=== PATIENT | female | born 1990 | race Two or more races ===

== ENCOUNTER 2021-01-11 09:19 | Day surgery (SDC) | payer OTHER ==
[2021-01-11] MEDS ORDERED: SILVADENE20 GM TOP (16:49)
[2021-01-11] MEDS ORDERED: ULTRACET PO (16:50)
== END 2021-01-11 21:50 | disposition home or self-care (01) ==
LOC: CIR.AMB 09:19
PROVIDERS: ATTEND Obstetrics & Gynecology
DX: A63.0 Anogenital (venereal) warts (principal); A07.8 Other specified protozoal intestinal diseases; Z20.822 Contact with and (suspected) exposure to COVID-19

== ENCOUNTER 2023-12-12 13:43 | Inpatient (IN) | payer OTHER ==
[~2023-12-12] VITALS: Ht 231.1 cm; Wt 99.8 kg
[~2023-12-12 13:43] MED LIST: SILVADENE20 GM TOP; ULTRACET PO
[2023-12-12 16:41] LABS: MEAN CELL VOLUME 93.1 fL (80.00-100.00); MEAN CORPUSCULAR HGB CONC 34.3 g/dl (32.0-36.0); PLATELET COUNT 336 K/uL (150-450); RED BLOOD COUNT 2.27 M/uL (4.00-6.00); RED CELL DISTRIBUTION WIDTH 13.8 % (11.5-14.5)
[2023-12-12 16:45] LABS: HEMATOCRIT 21.2 % (36.0-45.00); MEAN CORPUSCULAR HEMOGLOBIN 32.1 pg (27.00-32.0)
[2023-12-12] MEDS ORDERED: ACETAMINOPHEN 500 MG GEL..CAP PO ONE ×2 (16:45→17:53)
[2023-12-12 16:46] LABS: HEMOGLOBIN 7.3 g/dL (12.0-15.00)
[2023-12-12 16:54] LABS: INR 1.03; PARTIAL THROMBOPLASTIN TIME 25.9 SECONDS (22.0-34.0); PROTHROMBIN TIME 10.8 SECONDS (9.0-11.5)
[2023-12-12 17:03] LABS: CALCIUM 9.2 mg/dL (8.5-10.1); CREATININE SERUM 0.56 mg/dL (0.55-1.02); GFR 126.26; POTASSIUM 3.94 mEq/L (3.5-5.1)
[2023-12-12 17:10] LABS: PH,URINE 5.5 (5.0-8.0); URINE APPEARANCE Clear; URINE BILIRRUBIN Negative (NEGATIVE); URINE BLOOD Large; URINE COLOR Yellow; URINE GLUCOSE Negative (NEGATIVE); URINE KETONE Negative (NEGATIVE); URINE LEUKOCYTE Trace; URINE NITRATE Negative; URINE PROTEIN Negative (NEGATIVE); URINE UROBILINOGEN 0.2 E.U./dl
[2023-12-12 17:14] LABS: URINE EPITHELIAL CELLS 3.2 uL (0.0-38.8); URINE RBC 20.7 uL (0.0-20.8); URINE WBC 33.4 uL (0.0-23.2)
[2023-12-12 17:31] LABS: URINE CAST 0.15 uL (0.0-1.40)
[2023-12-12] MEDS ORDERED: CEFTRIAXONE SODIUM 2,000 MG VIAL IV ONE (17:45)
[2023-12-12] MEDS ORDERED: 0.9 % SODIUM CHLORIDE 500 ML IV ONE (17:45)
[2023-12-12] MEDS ORDERED: CEFTRIAXONE SODIUM 2,000 MG VIAL ONE (17:53)
[2023-12-12] MEDS ORDERED: CEFTRIAXONE SODIUM 1,000 MG VIAL IV SCH (18:30)
[2023-12-12] MEDS ORDERED: CEFTRIAXONE SODIUM 1,000 MG VIAL IV STA (18:30)
[2023-12-12 18:31] LABS: HEMATOCRIT 26.3 % (36.0-45.00); MEAN CELL VOLUME 93.9 fL (80.00-100.00); MEAN CORPUSCULAR HGB CONC 34.1 g/dl (32.0-36.0); PLATELET COUNT 354 K/uL (150-450); RED CELL DISTRIBUTION WIDTH 13.3 % (11.5-14.5)
[2023-12-12 18:35] LABS: MEAN CORPUSCULAR HEMOGLOBIN 32.1 pg (27.00-32.0)
[2023-12-13] MEDS ORDERED: NAPROXEN 500 MG TABLET PO SCH (05:28)
[2023-12-13 16:46] LABS: HEMATOCRIT 30.2 % (36.0-45.00); HEMOGLOBIN 10.6 g/dL (12.0-15.00); MEAN CELL VOLUME 91.1 fL (80.00-100.00); MEAN CORPUSCULAR HEMOGLOBIN 31.8 pg (27.00-32.0); MEAN CORPUSCULAR HGB CONC 34.9 g/dl (32.0-36.0); PLATELET COUNT 356 K/uL (150-450); RED BLOOD COUNT 3.31 M/uL (4.00-6.00); RED CELL DISTRIBUTION WIDTH 14.1 % (11.5-14.5)
[2023-12-14] MEDS ORDERED: NAPR500T14 PO (11:57)
[2023-12-14] MEDS ORDERED: MAXFE CAPLET1 EAC1 PO (11:57)
== END 2023-12-14 12:47 | disposition home or self-care (01) | DRG 812 ==
LOC: ER 13:43 → SEC-K 18:51 → OB/GYN 18:51
PROVIDERS: Nurse Practitioner Family; ADMIT Obstetrics & Gynecology; ATTEND Obstetrics & Gynecology
PROC: BU4CZZZ Ultrasonography of Uterus and Ovaries (ICD-10-PCS; principal; 2023-12-12)
PROC: 30233N1 Transfusion of Nonautologous Red Blood Cells into Peripheral Vein, Percutaneous Approach (ICD-10-PCS; 2023-12-13)
DX: D50.0 Iron deficiency anemia secondary to blood loss (chronic) (principal); D25.1 Intramural leiomyoma of uterus; O03.6 Delayed or excessive hemorrhage following complete or unspecified spontaneous abortion; Z20.822 Contact with and (suspected) exposure to COVID-19

== ENCOUNTER 2024-11-08 08:30 | Inpatient (IN) | payer OTHER ==
[~2024-11-08] VITALS: Ht 152.4 cm; Wt 110.7 kg
[~2024-11-08 08:30] MED LIST changes: +MAXFE CAPLET1 EAC1 PO; +NAPR500T14 PO
[2024-11-08 10:14] VITALS: BP 122/76
[2024-11-08 11:05] LABS: URINE APPEARANCE Clear; URINE BILIRRUBIN Negative (NEGATIVE); URINE BLOOD NHT; URINE COLOR Yellow; URINE GLUCOSE Negative (NEGATIVE); URINE KETONE Negative (NEGATIVE); URINE LEUKOCYTE Negative; URINE NITRATE Negative; URINE PROTEIN Negative (NEGATIVE); URINE UROBILINOGEN 0.2 E.U./dl
[2024-11-08 11:09] LABS: URINE BACTERIA 5363.7 uL (0.0-1933); URINE EPITHELIAL CELLS 55.8 uL (0.0-38.8); URINE RBC 25.0 uL (0.0-20.8); URINE WBC 41.5 uL (0.0-23.2)
[2024-11-08 11:12] LABS: URINE CAST 0.43 uL (0.0-1.40)
[2024-11-08 11:19] LABS: BASO % 0.5 % (0.1-1.2); EOS # 0.12 (0.04-0.54); EOS % 2.1 % (0.7-7.0); LYMPH # 1.72 (1.18-3.74); LYMPH % 30.2 % (19.3-53.1); MEAN PLATELET VOLUME 9.00 fl (9.4-12.4); MONO # 0.40 (0.24-0.82); MONO % 7.0 % (4.7-12.5); NEUT # 3.42 (1.56-6.13); NEUT % 60.0 % (34.0-71.1); RED CELL DISTRIBUTION WIDTH 15.1 % (11.6-14.4)
[2024-11-08 12:27] LABS: ALT/SGPT 17 U/L (12-78); AST/SGOT 11 U/L (15-37); BILIRUBIN TOTAL 0.37 mg/dL (0.3-1.2); BUN CREA RATIO 18 (7.0-25.0); CREATININE SERUM 0.68 mg/dL (0.55-1.02); GFR 100.27; GLOBULINA 4.2 G/DL (2.4-3.5); GLUCOSE FASTING 78 mg/dL (65-100); OSMOLALITY SERUM 278 MOSM/KG (275-295)
[2024-11-08 12:28] LABS: HCG QUANTITATIVE < 1 mUI/mL (1-3)
[2024-11-08 12:55] LABS: RH POSITIVE
[2024-11-08 12:58] LABS: INR 1.0
[2024-11-22] MEDS ORDERED: VASOPRESSIN 20 UNITS/ML VIAL IJ ONE (08:15)
[2024-11-22] MEDS ORDERED: CEFAZOLIN SODIUM 1,000 MG VIAL IV ONE (09:00)
[2024-11-22] MEDS ORDERED: TRANEXAMIC ACID 100MG/1ML (1000MG) AMPUL IV ONE (09:00)
[2024-11-22] MEDS ORDERED: SUGAMMADEX SODIUM 200 MG/2 ML VIAL IV ONE (09:56)
[2024-11-22] MEDS ORDERED: KETOROLAC TROMETHAMINE 30 MG VIAL IV SCH (12:12)
[2024-11-22] MEDS ORDERED: ACETAMINOPHEN 500 MG GEL..CAP PO SCH (12:12)
[2024-11-22] MEDS ORDERED: RINGERS SOLUTION,LACTATED 1,000 ML IV SCH (12:15)
[2024-11-22] MEDS ORDERED: ONDANSETRON HCL 2 MG/ML VIAL ONE (12:32)
[2024-11-22] MEDS ORDERED: MORPHINE SULFATE 4 MG/ML VIAL IV ONE ×2 (12:35→13:40)
[2024-11-22] MEDS ORDERED: ONDANSETRON HCL 2 MG/ML VIAL IV ONE (12:40)
[2024-11-22] MEDS ORDERED: GABAPENTIN 300 MG CAPSULE PO SCH (13:00)
[2024-11-22] MEDS ORDERED: KETOROLAC TROMETHAMINE 30 MG VIAL ONE (13:05)
[2024-11-22 14:51] VITALS: BP 100/60
[2024-11-22 16:03] VITALS: BP 100/65
[2024-11-22] MEDS ORDERED: ONDANSETRON HCL 2 MG/ML VIAL IV SCH (18:00)
[2024-11-22 20:14] VITALS: BP 94/51
[2024-11-23 01:17] VITALS: BP 117/69
[2024-11-23 07:06] LABS: BASO % 0.3 % (0.1-1.2); EOS # 0.08 (0.04-0.54); EOS % 0.9 % (0.7-7.0); LYMPH # 2.21 (1.18-3.74); LYMPH % 24.4 % (19.3-53.1); MEAN PLATELET VOLUME 9.50 fl (9.4-12.4); MONO # 0.65 (0.24-0.82); MONO % 7.2 % (4.7-12.5); NEUT # 6.06 (1.56-6.13); NEUT % 67.0 % (34.0-71.1); RED CELL DISTRIBUTION WIDTH 15.9 % (11.6-14.4)
[2024-11-23 09:34] VITALS: BP 119/76
== END 2024-11-23 08:55 | disposition home or self-care (01) | DRG 743 ==
LOC: SURH 11-16 08:30 → O/R 11-22 05:26 → OB/GYN 11-22 13:21
PROVIDERS: ADMIT Student in an Organized Health Care Education/Training Program; ATTEND Student in an Organized Health Care Education/Training Program
PROC: 0WBH4ZZ Excision of Retroperitoneum, Percutaneous Endoscopic Approach (ICD-10-PCS; 2024-11-22)
PROC: 0UDB8ZZ Extraction of Endometrium, Via Natural or Artificial Opening Endoscopic (ICD-10-PCS; 2024-11-22)
PROC: 8E0W4CZ Robotic Assisted Procedure of Trunk Region, Percutaneous Endoscopic Approach (ICD-10-PCS; 2024-11-22)
PROC: 3E1P88Z Irrigation of Female Reproductive using Irrigating Substance, Via Natural or Artificial Opening Endoscopic (ICD-10-PCS; 2024-11-22)
PROC: 0UB94ZZ Excision of Uterus, Percutaneous Endoscopic Approach (ICD-10-PCS; principal; 2024-11-22 07:30)
DX: D25.1 Intramural leiomyoma of uterus (principal); N80.351 Endometriosis of the right pelvic sidewall, unspecified depth; D25.2 Subserosal leiomyoma of uterus; N94.5 Secondary dysmenorrhea; N92.0 Excessive and frequent menstruation with regular cycle
CPT/HCPCS: 58546; 58662; 58350; S2900